=== PATIENT | male | born 1965 | race Caucasian/White ===

== ENCOUNTER 2018-05-24 08:41 | Emergency (ER) | payer OTHER ==
[~2018-05-24] VITALS: Ht 193 cm; Wt 136.1 kg
[2018-05-24 08:45] VITALS: Ht 193 cm; Wt 136.1 kg
[2018-05-24 10:06] VITALS: BP 151/99
== END 2018-05-24 10:05 | disposition home or self-care (01) ==
LOC: ED 08:41
DX: M54.5 Low back pain (principal)
CPT/HCPCS: J1885